=== PATIENT | female | born 1970 | race Native Hawaiian/Other Pacific Islander ===

== ENCOUNTER 2017-10-11 22:34 | Emergency (ER) | payer OTHER ==
[~2017-10-11] VITALS: Ht 165.1 cm; Wt 139.3 kg
[2017-10-11 23:30] VITALS: BP 165/87; TEMP 98.6
== END 2017-10-11 23:30 | disposition home or self-care (01) ==
LOC: ED 22:34
PROC: 0H97XZZ Drainage of Abdomen Skin, External Approach (ICD-10-PCS; principal; 2017-10-11)
DX: L02.211 Cutaneous abscess of abdominal wall (principal)
CPT/HCPCS: 87070; 87077; 87185; 87186; 87205; 99283

== ENCOUNTER 2018-04-24 20:42 | Emergency (ER) | payer OTHER ==
[~2018-04-24] VITALS: Ht 165.1 cm; Wt 138.3 kg
[2018-04-24 23:25] VITALS: BP 145/92; TEMP 98.5
== END 2018-04-24 23:28 | disposition home or self-care (01) ==
LOC: ED 20:42
DX: M17.12 Unilateral primary osteoarthritis, left knee (principal); E66.01 Morbid (severe) obesity due to excess calories
CPT/HCPCS: 96372; 99282; J1885

== ENCOUNTER 2018-10-19 19:57 | Emergency (ER) | payer OTHER ==
[~2018-10-19] VITALS: Ht 165.1 cm; Wt 142.9 kg
[2018-10-19 21:10] LABS: PLATELET COUNT 380 K/uL (152-353)
[2018-10-19 21:11] LABS: POTASSIUM 3.7 mmol/L (3.6-5.2)
[2018-10-19 21:27] LABS: PARTIAL THROMBOPLASTIN TIME 27.5 SECONDS (24.5-33.6)
[2018-10-19 23:00] VITALS: BP 145/71; TEMP 99.5
== END 2018-10-19 23:00 | disposition home or self-care (01) ==
LOC: ED 19:57
PROVIDERS: Hospitalist
DX: S80.862A Insect bite (nonvenomous), left lower leg, initial encounter (principal); L03.116 Cellulitis of left lower limb; W57.XXXA Bitten or stung by nonvenomous insect and other nonvenomous arthropods, initial encounter
CPT/HCPCS: 36415; 80048; 83605; 85027; 85610; 85730; 87040; 96365; 96374; 96375; 99284; J1885; J3370

== ENCOUNTER 2018-11-08 10:57 | Emergency (ER) | payer OTHER ==
[~2018-11-08] VITALS: Ht 165.1 cm; Wt 142.9 kg
[2018-11-08 11:12] VITALS: BP 166/80; TEMP 97.7
== END 2018-11-08 11:30 | disposition home or self-care (01) ==
LOC: ED 10:57
DX: M67.432 Ganglion, left wrist (principal)
CPT/HCPCS: 99281

== ENCOUNTER 2018-12-29 15:27 | Emergency (ER) | payer OTHER ==
[~2018-12-29] VITALS: Ht 165.1 cm; Wt 142.9 kg
[2018-12-29 17:09] LABS: PLATELET COUNT 225 K/uL (152-353)
[2018-12-29 17:17] LABS: POTASSIUM 3.5 mmol/L (3.6-5.2)
[2018-12-29 19:15] VITALS: BP 124/69; TEMP 97.6
== END 2018-12-29 19:15 | disposition home or self-care (01) ==
LOC: ED 15:27
PROVIDERS: Family Medicine
DX: G43.909 Migraine, unspecified, not intractable, without status migrainosus (principal); N39.0 Urinary tract infection, site not specified
CPT/HCPCS: 36415; 80053; 81000; 85027; 87077; 87086; 87088; 87186; 96372; 99283; J0696; J3030

== ENCOUNTER 2019-09-20 09:16 | Emergency (ER) | payer OTHER ==
[~2019-09-20] VITALS: Ht 165.1 cm; Wt 142.9 kg
[2019-09-20 10:01] VITALS: BP 143/69; TEMP 98.5
== END 2019-09-20 10:01 | disposition home or self-care (01) ==
LOC: ED 09:16
DX: H72.91 Unspecified perforation of tympanic membrane, right ear (principal)
CPT/HCPCS: 99282

== ENCOUNTER 2019-11-21 19:59 | Emergency (ER) | payer OTHER ==
[~2019-11-21] VITALS: Ht 165.1 cm; Wt 141.5 kg
[2019-11-21 20:17] VITALS: BP 126/74; TEMP 98.5
== END 2019-11-21 21:15 | disposition home or self-care (01) ==
LOC: ED 19:59
DX: S60.454A Superficial foreign body of right ring finger, initial encounter (principal); W45.8XXA Other foreign body or object entering through skin, initial encounter; Y92.89 Other specified places as the place of occurrence of the external cause
CPT/HCPCS: 90471; 96372; 99283; J0696

== ENCOUNTER 2020-03-18 07:54 | Emergency (ER) | payer OTHER ==
[~2020-03-18] VITALS: Ht 165.1 cm; Wt 141.5 kg
[2020-03-18 08:05] VITALS: TEMP 97.6
[2020-03-18 09:32] VITALS: BP 118/57
== END 2020-03-18 09:46 | disposition home or self-care (01) ==
LOC: ED 07:54
DX: J32.8 Other chronic sinusitis (principal); R51.9 Headache, unspecified; Z63.4 Disappearance and death of family member
CPT/HCPCS: 99283

== ENCOUNTER 2020-07-04 22:45 | Emergency (ER) | payer OTHER ==
[~2020-07-04] VITALS: Ht 165.1 cm; Wt 145.1 kg
[2020-07-05 00:48] LABS: PLATELET COUNT 305 K/uL (152-353)
[2020-07-05 02:40] VITALS: BP 160/82; TEMP 98.1
== END 2020-07-05 02:40 | disposition home or self-care (01) ==
LOC: ED 22:45
PROVIDERS: Family Medicine
DX: S93.692A Other sprain of left foot, initial encounter (principal); M25.472 Effusion, left ankle
CPT/HCPCS: 36415; 80053; 84550; 85027; 96372; 99283; J1885